=== PATIENT | female | born 1955 | race Two or more races ===

== ENCOUNTER 2022-09-14 12:29 | Emergency (ER) | payer BC ==
[~2022-09-14] VITALS: Ht 154.9 cm; Wt 76.2 kg
[2022-09-14] MEDS ORDERED: SIMVASTATIN20 MG PO (13:05)
[2022-09-14] MEDS ORDERED: ST. JOSEPH ASPI81 M2 PO (13:06)
[2022-09-14] MEDS ORDERED: LOSARTAN POTASS50 MG PO (13:06)
== END 2022-09-14 16:50 | disposition home or self-care (01) ==
LOC: ER 12:29
DX: S00.531A Contusion of lip, initial encounter (principal); V80.010A Animal-rider injured by fall from or being thrown from horse in noncollision accident, initial encounter; Y93.I9 Activity, other involving external motion; Y92.89 Other specified places as the place of occurrence of the external cause; I10 Essential (primary) hypertension